=== PATIENT | male | born 1985 | race Caucasian/White ===

== ENCOUNTER 2025-03-23 17:39 | Emergency (ER) | payer OTHER ==
[~2025-03-23] VITALS: Ht 185.4 cm; Wt 135.6 kg
[2025-03-23 18:47] LABS: BASOPHILS 0.7 % (0-2); EOSINOPHILS 2.2 % (0-6); HEMATOCRIT 35.9 % (35.0-50.0); HEMOGLOBIN 12.8 g/dL (12.0-18.0); LYMPHOCYTES 35.5 % (24-44); MCH 30.5 (27-36); MCHC 35.8 g/dl (30-36); MCV 85.4 fl (81-99); MONOCYTES 6.7 % (0-12); NEUTROPHILS 54.9 % (39-80); PLATELET COUNT 159 K/uL (140-440); RBC 4.21 M/ul (4.3-5.7); RDW 13.3 (10.5-15.0)
[2025-03-23 18:59] LABS: ALBUMIN 3.8 g/dL (3.4-5.0); ALBUMIN/GLOBULIN RATIO 1.23 (1.1-2.4); BILIRUBIN, TOTAL 0.5 mg/dL (0.2-1.0); BUN/CREATININE RATIO 10.76 (6.0-28.6); CALCIUM 8.2 mg/dL (8.5-10.1); CREATININE, SERUM 1.3 mg/dL (0.70-1.30); PROTEIN, TOTAL 6.9 g/dL (6.4-8.2)
[2025-03-23] MEDS ORDERED: Methylnaltrexone Bromide 12 MG/0.6 ML VIAL SUB-Q ONE (19:30)
[2025-03-23 20:15] VITALS: BP 132/69
== END 2025-03-23 20:15 | disposition home or self-care (01) ==
LOC: ED 17:39
PROVIDERS: Emergency Medicine
DX: K59.03 Drug induced constipation (principal); T40.2X5A Adverse effect of other opioids, initial encounter
CPT/HCPCS: 36415; 74018; 80053; 85025; 96372; 99284; J2212